=== PATIENT | female | born 1990 | race Caucasian/White ===

== ENCOUNTER 2022-04-15 23:54 | Outpatient (CLI) | payer OTHER ==
[~2022-04-15] VITALS: Ht 149.9 cm; Wt 52.7 kg
[2022-04-16 00:24] VITALS: BP 107/66
[2022-04-16] MEDS ORDERED: PREN-142 PO (00:45)
[2022-04-16] MEDS ORDERED: RT-ALBUINH INH (00:46)
--- NOTE | 2022-04-16 08:34 | Physician Query-Final Dx ---
MITCH,04/16/22 0834: Clinic Account Progress/Dx Physician Query: Please give diagnosis Please include # weeks gestation Date of Service Apr 15, 2022 at 23:54 BREANNA CARPIO MD 04/16/22 1157: Clinic Account Progress/Dx DIAGNOSIS: Diagnosis 21 weeks gestation with vaginal bleeding in [facility],JunApr 16, 2022 08:34 BREANNA CARPIO MD Apr 16, 2022 11:57
== END 2022-04-16 00:55 | disposition home or self-care (01) ==
LOC: LDRP 23:54 → WSo 23:54
PROVIDERS: ATTEND Obstetrics & Gynecology
DX: O46.92 Antepartum hemorrhage, unspecified, second trimester (principal); Z3A.21 21 weeks gestation of pregnancy
CPT/HCPCS: 99213

== ENCOUNTER → 2022-05-31 | Outpatient (CLI) | payer OTHER ==
[~2022-05-31] MED LIST: PREN-142 PO; RT-ALBUINH INH
--- NOTE | 2022-05-31 13:39 | Diagnostic Imaging Report ---
INDICATION: Low fundal height. TECHNIQUE: Multiple real-time grayscale images were obtained over the gravid uterus. COMPARISON: None FINDINGS: There is a single live fetus in a cephalic presentation. heart rate was recorded at 156 BPM. Placenta is anterior. Amniotic fluid index is 15.2 cm. Cervical length is 2.6 cm. Biophysical profile was performed with a normal score of 8/8. Biometrical measurements are as follows: Biparietal 7.36 cm, age 29 weeks 4 days. Head circumference 26.71 cm, age 29 weeks 1 days. Abdominal circumference 24.80 cm, age 29 weeks 1 days. Femur length 5.39 cm, age 28 weeks 4 days. Sonographic estimate age: 29 weeks 1 days. Sonographic estimated date of delivery: 08/15/2022. Estimated Weight: 1304 gm (+/- 190 gm). LMP percentile: 67%. heart rate: 156 beats per minute. number: 1 of 1. IMPRESSION: 1. Single live IUP of 29 weeks gestational age with estimated date of confinement sonographically of 08/15/2022. 2. Normal biophysical profile score of 8/8. Dictated by: Dictated on workstation # [id number]
== END ==
LOC: RAD 10:45
PROVIDERS: ATTEND Obstetrics & Gynecology
DX: O26.93 Pregnancy related conditions, unspecified, third trimester (principal); Z3A.29 29 weeks gestation of pregnancy
CPT/HCPCS: 76805; 76819

== ENCOUNTER 2022-07-31 22:37 | Emergency (ER) | payer OTHER ==
[~2022-07-31] VITALS: Ht 152.4 cm; Wt 55.3 kg
--- NOTE | 2022-07-31 23:11 | ED Lower Extremity ---
General Chief Complaint: Lower Extremity Stated Complaint: PAIN IN RIGHT LEG Nursing Triage Note: 37 WK PT AMB TO RM 6 WITH CC OF RIGHT CALF PAIN THAT STARTED AT 1999 THIS EVENING. PT RATES PAIN A 09/10. Source: patient, family Exam Limitations: no limitations History of Present Illness Date Seen by Provider: Jul 31, 2022 Time Seen by Provider: 22:58 Initial Comments 31-year-old female presents to the emergency department today for right leg pain. She is 37 weeks . She states symptoms present since this morning about 10 AM when she was sitting in a chair. She states she typically just takes it easy on Tuesdays and if she does not work and she is worn down from her . She denies any swelling. She has pain with a sharp stabbing in her right calf without radiation. No aggravating or alleviating factors. She has not tried anything to alleviate her symptoms. She denies any chest pain or shortness of breath. Allergies and Home Medications Allergies Coded Allergies: No Known Drug Allergies (Verified Allergy, Unknown, 08/08/09) Patient Home Medication List Home Medication List Reviewed: Yes Albuterol Sulfate (Ventolin Hfa) 1 Puff Puff, 2 PUFF INH Q4H, (Reported) Entered as Reported by: MEENU MARCOS on 04/16/2245 Vit No.124/Iron/FA ( Vitamin Tablet) 27 Mg Iron-800 Mcg Tablet, 1 EACH PO DAILY, (Reported) Entered as Reported by: MEENU MARCOS on 04/16/2244 Review of Systems Constitutional: no symptoms reported EENTM: no symptoms reported Respiratory: no symptoms reported Cardiovascular: no symptoms reported Gastrointestinal: no symptoms reported Genitourinary: no symptoms reported Musculoskeletal: other (Right calf pain) Skin: no symptoms reported Psychiatric/Neurological: No Symptoms Reported Past Glkodte-Vjenlm-Fqhgwl Hx Patient Social History Tobacco Use?: No Substance use?: No Alcohol Use?: No Past Medical History Surgery/Hospitalization HX: HEART MURMUR AT AGE 4 Reproductive Disorders: No Family Medical History Reviewed Nursing Family Hx No Pertinent Family Hx Physical Exam Vital Signs Vital Signs - First Documented 07/31/22 22:44 Pulse 74 B/P (MAP) 104/69 (81) Pulse Ox 100 O2 Delivery Room Air Capillary Refill : Height, Weight, BMI Height: '" Weight: lbs. oz. kg; 23.00 BMI Method: General Appearance: WD/WN, no apparent distress HEENT: normal ENT inspection, pharynx normal Neck: non-tender, supple Cardiovascular: regular rate, rhythm, no edema, no murmur Respiratory: chest non-tender, lungs clear, normal breath sounds, no respiratory distress, no accessory muscle use, respiratory distress Gastrointestinal: normal bowel sounds, non tender, soft, no organomegaly, other () Legs: right leg other (Tenderness palpation right calf. No swelling. Good distal pulses bilaterally.) Knees: bilateral knee non-tender, bilateral knee normal inspection, bilateral knee normal range of motion Ankles: bilateral ankle non-tender, bilateral ankle normal inspection, bilateral ankle normal range of motion Neurologic/Psychiatric: alert, normal mood/affect, oriented x 3 Skin: normal color, warm/dry Progress/Results/Core Measures Results/Orders My Orders Orders - HOSEAIVETTE FISCHER DO Enoxaparin Injection (Lovenox Injection) (07/31/22 23:15) Medications Given in ED Current Medications Medications Dose Ordered Sig/Beba Route Start Time Stop Time Status Last Admin Dose Admin Enoxaparin Sodium 50 mg ONCE ONCE SC 07/31/22 23:15 07/31/22 23:16 DC 07/31/22 23:13 50 MG Vital Signs/I&O 07/31/22 22:44 Pulse 74 B/P (MAP) 104/69 (81) Pulse Ox 100 O2 Delivery Room Air Blood Pressure Mean: 81 Departure Communication (Admissions) Patient is hemodynamically stable. She has mild tenderness about her right calf. Neurovascular motor and sensory intact. There is no swelling in the area. No trauma to the area some indication for imaging. We do not have ultrasound available after hours. With that we will go ahead and give her 1 mg/kg of Lovenox tonight. I have scheduled for an outpatient ultrasound to be completed tomorrow. These results will go to Dr. MADRIGAL for further treatment recommendations. Impression Primary Impression: Right calf pain Additional Impression: Qualified Codes: Z3A.37 - 37 weeks gestation of Disposition: HOME, SELF-CARE Condition: Stable Departure-Patient Inst. Referrals: NO,LOCAL PHYSICIAN (PCP/Family) Primary Care Physician Patient Instructions: Deep Vein Thrombosis (DVT) ED Add. Discharge Instructions: Given your , you are at increased risk for blood clots in your veins. WIth that, i have given you a dose of a blood thinning medication, lovenox. I will go ahead and order an ultrasound for you to complete tomorrow. If this is negative, there is no need for further treatment. If positive, you will need to contact Dr Sanchez's office to get a prescription for treatment going forward. I will forward your ultrasound results to their office. Return to the ER immediately if you develop chest pain or significant shortness of breath. Follow up with Dr Sanchez tomorrow. All discharge instructions reviewed with patient and/or family. Voiced underst anding. IVETTE JC DO Jul 31, 2022 23:11
[2022-07-31] MEDS ORDERED: ENOXAPARIN 60 MG/0.6 ML (LOVENOX) SYR SC ONE (23:15)
[2022-07-31 23:40] VITALS: BP 103/63
== END 2022-07-31 23:40 | disposition home or self-care (01) ==
LOC: EDUNIT# 22:37 → ER 22:40
DX: O99.891 Other specified diseases and conditions complicating pregnancy (principal); M79.661 Pain in right lower leg; Z3A.37 37 weeks gestation of pregnancy; Z28.310 Unvaccinated for COVID-19
CPT/HCPCS: 99284

== ENCOUNTER → 2022-08-01 | Outpatient (CLI) | payer OTHER ==
--- NOTE | 2022-08-01 12:40 | Diagnostic Imaging Report ---
PROCEDURE: US right lower extremity venous. TECHNIQUE: Multiple real-time grayscale images were obtained over the right lower extremity in various projections. Additional spectral analysis and color Doppler duplex images were also obtained. INDICATION: Right leg pain and swelling. FINDINGS: There is no evidence of right lower extremity DVT. Right lower extremity deep venous system shows normal compressibility with normal response to augmentation and Valsalva. No fluid collection or mass is detected. IMPRESSION: No evidence of right lower extremity DVT. Dictated by: Dictated on workstation # [id number]
== END ==
LOC: RAD 11:58
PROVIDERS: ATTEND Emergency Medicine
DX: O26.899 Other specified pregnancy related conditions, unspecified trimester (principal); M79.604 Pain in right leg; M79.89 Other specified soft tissue disorders; Z3A.00 Weeks of gestation of pregnancy not specified

== ENCOUNTER 2022-08-16 07:35 | Inpatient (IN) | payer OTHER ==
[2022-08-16] VITALS (45 sets, daily range): BP systolic 93–147; BP diastolic 50–96
[2022-08-16] MEDS ORDERED: MINERAL OIL 30 ML UDC TOP PRN (08:30)
[2022-08-16 08:33] LABS: BASOPHILS % (AUTO) 0 % (0-10); EOSINOPHILS # (AUTO) 0.1 10^3/uL (0.0-0.3); EOSINOPHILS % (AUTO) 1 % (0-10); HEMATOCRIT 28 % (35-52); HEMOGLOBIN 8.8 g/dL (11.5-16.0); LYMPHOCYTES % (AUTO) 21 % (12-44); MEAN CORPUSCULAR HEMOGLOBIN 26 pg (25-34); MEAN CORPUSCULAR HGB CONC 32 g/dL (32-36); MEAN CORPUSCULAR VOLUME 80 fL (80-99); MONOCYTES # (AUTO) 0.7 10^3/uL (0.0-1.0); MONOCYTES % (AUTO) 7 % (0-12); NEUTROPHILS # (AUTO) 6.7 10^3/uL (1.8-7.8); NEUTROPHILS % (AUTO) 70 % (42-75); PLATELET COUNT 270 10^3/uL (130-400); WHITE BLOOD COUNT 9.5 10^3/uL (4.3-11.0)
[2022-08-16] MEDS ORDERED: fentaNYL 2 mcg/ml BUPIVA 0.125 100 ML ONE (08:53)
--- NOTE | 2022-08-16 08:53 | History & Physical-OB ---
OB - Chief Complaint & HPI Date/Time Date of Admission: Date of Admission: Aug 16, 2022 at 07:37 Date seen by a Provider: Aug 16, 2022 Time Seen by a Provider: 08:00 Chief Complaint/History OB-Reason for Admission/Chief: Onset of Labor Hx : 2 Hx Para: 1 Expected Date of Delivery: Aug 22, 2022 Gestational Age in Weeks: 39 Gestational Age in Days: 1 Admission Nurse Assessment Rev: Yes History of Labs MBT O POS PNAS NEG VDRL NR HBSAG NR HIV NR RUBELLA IMMUNE TSH NORMAL HCV NR MSAFP/MULTIPLE MARKERS NORMAL 1 HR GLUCOLA 95 GBS NEG Allergies and Home Medications Allergies Coded Allergies: No Known Drug Allergies (Verified , 08/08/09) Patient Home Medication List Home Medication List Reviewed: Yes Albuterol Sulfate (Ventolin Hfa) 1 Puff Puff, 2 PUFF INH Q4H, (Reported) Entered as Reported by: MEENU MARCOS on 04/16/2245 Vit No.124/Iron/FA ( Vitamin Tablet) 27 Mg Iron-800 Mcg Tablet, 1 EACH PO DAILY, (Reported) Entered as Reported by: MEENU MARCOS on 04/16/2244 OB - History Hx of Present Care: Yes Obstetrical Complications: None Medical Complications: Other (ASTHMA) Information Induced Hypertension: No Maternal Gestational Diabetes: No Delivery History Hx Blood Disorders: No Patient Past Medical History ASTHMA: CONTROLLED HX CARDIAC SURGERY AGE 4 FOR HEART MURMUR, NO ISSUES, NO EXERCISE INTOLERANCE. Social History/Family History Alcohol Use: Denies Use Recreational Drug Use: No 2nd Hand Smoke Exposure: No OB - Admission Exam Physical Exam HEENT: Moist Membranes Heart: Rhythm Normal Lungs: Clear Abdomen: Gravid Extremities: Normal Reflexes: Normal Cervical Dilatation: 6cm Effacement: Other (80) Station: -3 Membranes: Intact Heart Rate: 120's Accelerations: Accelerations Present Decelerations: Variable Decelerations Short Term Variability: Present Longterm Variability: Average (6-25) Contractions on Admission: < 5 Minutes Apart Intensity: Firm Labs Laboratory Tests Test 08/16/22 08:19 Range/Units White Blood Count 9.5 4.3-11.0 10^3/uL Red Blood Count 3.43 L 3.80-5.11 10^6/uL Hemoglobin 8.8 L 11.5-16.0 g/dL Hematocrit 28 L 35-52 % Mean Corpuscular Volume 80 80-99 fL Mean Corpuscular Hemoglobin 26 25-34 pg Mean Corpuscular Hemoglobin Concent 32 32-36 g/dL Red Cell Distribution Width 12.5 10.0-14.5 % Platelet Count 270 130-400 10^3/uL Mean Platelet Volume 10.0 9.0-12.2 fL Immature Granulocyte % (Auto) 1 % Neutrophils (%) (Auto) 70 42-75 % Lymphocytes (%) (Auto) 21 12-44 % Monocytes (%) (Auto) 7 0-12 % Eosinophils (%) (Auto) 1 0-10 % Basophils (%) (Auto) 0 0-10 % Neutrophils # (Auto) 6.7 1.8-7.8 10^3/uL Lymphocytes # (Auto) 2.0 1.0-4.0 10^3/uL Monocytes # (Auto) 0.7 0.0-1.0 10^3/uL Eosinophils # (Auto) 0.1 0.0-0.3 10^3/uL Basophils # (Auto) 0.0 0.0-0.1 10^3/uL Immature Granulocyte # (Auto) 0.1 0.0-0.1 10^3/uL OB - Assessment/Plan/Diagnosis Assessment Assessment: active labor Admission Dx # 39 1/7 WEEKS # ACTIVE LABOR Admission Status: Inpatient Order (span 2 midnights) Reason for Inpatient Admission: 39 1/7 WEEKS ACTIVE LABOR Plan Plan: Expectant Management, Other (EPIDURAL AT PATIENT REQUEST. ASTHMA: AVOID HEMABATE, HAVE EXTRA PITOCIN AND METHERGINE AND CYTOTEC IF POSTPARTU HEMORRHAGE) BENJI WARREN DO Aug 16, 2022 08:53
[2022-08-16] MEDS: D5 LR IV SOLUTION 1,000 ML IV SCH (09:06)
[2022-08-16] MEDS ORDERED: NALOXONE 0.4 MG/ML 1 ML (NARCAN) VIAL IV PRN ×2 (09:30)
[2022-08-16] MEDS ORDERED: ONDANSETRON 4 MG/2 ML (SDV) Z0FRAN IV PRN (09:30)
[2022-08-16] MEDS ORDERED: diphenhydrAMINE 50 MG/ML INJ (BENADRYL) IV PRN (09:30)
[2022-08-16] MEDS ORDERED: fentaNYL 2 mcg/ml BUPIVA 0.125 100 ML EPI SCH (09:30)
[2022-08-16] MEDS ORDERED: LACTATED RINGERS 1,000 ML IV SCH (09:30)
[2022-08-16] MEDS ORDERED: METOCLOPRAMIDE INJ 10 MG/2 ML (REGLAN) IV PRN (09:30)
--- NOTE | 2022-08-16 10:29 | Labor Progress Note ---
Labor Progress Note Labor Progress Note Date Seen by Provider: Aug 16, 2022 Time Seen by Provider: 10:18 Subjective: Pt denies complaints. Objective: (Can we insert 24 hour vitals here?) Cervical exam: /-2/VTX/BOWI....AROM clear @ 1018 hours. Patient with functional epidural. Category I FHR tracing with spontaneous contractions q 3 minutes, FHR baseline 125, moderate variability, +accels, no decels. Assessment/Plan: Mary Mathews is a (31 /Para 2 / 1,Gestational Age (wks)39 here for labor, now AROM clear @ 7 cm dilation. with functional epidural. Anesthesia: Epidural Anticipate vaginal delivery. Vitals - Labs Vital Signs - I&O Vital Signs Date Time Temp Pulse Resp B/P (MAP) Pulse Ox O2 Delivery O2 Flow Rate FiO2 08/16/22 07:45 37.1 70 18 100 Room Air 08/16/22 07:43 37.0 71 18 114/62 (79) 100 Room Air Labs Laboratory Tests 08/16/22 08:19: White Blood Count 9.5, Red Blood Count 3.43L, Hemoglobin 8.8L, Hematocrit 28L, Mean Corpuscular Volume 80, Mean Corpuscular Hemoglobin 26, Mean Corpuscular Hemoglobin Concent 32, Red Cell Distribution Width 12.5, Platelet Count 270, Mean Platelet Volume 10.0, Immature Granulocyte % (Auto) 1, Neutrophils (%) (Auto) 70, Lymphocytes (%) (Auto) 21, Monocytes (%) (Auto) 7, Eosinophils (%) (Auto) 1, Basophils (%) (Auto) 0, Neutrophils # (Auto) 6.7, Lymphocytes # (Auto) 2.0, Monocytes # (Auto) 0.7, Eosinophils # (Auto) 0.1, Basophils # (Auto) 0.0, Immature Granulocyte # (Auto) 0.1 08/16/22 10:05: BENJI WARERN DO Aug 16, 2022 10:29
[2022-08-16 10:37] LABS: AMPHETAMINE SCREEN, URINE NEGATIVE (NEGATIVE); BARBITURATE SCREEN URINE NEGATIVE (NEGATIVE); BENZODIAZEPINES SCREEN URINE NEGATIVE (NEGATIVE); CANNABINOID SCREEN, URINE NEGATIVE (NEGATIVE); COCAINE SCREEN URINE NEGATIVE (NEGATIVE); METHADONE STAT NEGATIVE (NEGATIVE); OPIATE SCREEN URINE NEGATIVE (NEGATIVE); OXYCODONE STAT NEGATIVE (NEGATIVE); PROPOXYPHENE STAT NEGATIVE (NEGATIVE); TRICYCLIC ANTIDEPRESSANTS SCRE NEGATIVE (NEGATIVE)
[2022-08-16] MEDS ORDERED: LIDOCAINE 1% INJ 10 ML VIAL ONE (14:11)
[2022-08-16] MEDS ORDERED: OXYTOCIN PRE-MIX DRIP 500 ML IV ONE ×2 (14:11→15:06)
[2022-08-16] MEDS: OXYTOCIN PRE-MIX DRIP 500 ML IV SCH ×2 (14:34→15:06)
--- NOTE | 2022-08-16 14:53 | OB Labor & Delivery Record ---
Vag Delivery Note Vag Delivery Note Date of Delivery: 08/16/22 Preoperative Diagnosis: Mary Mathews is a (31 /Para 2 / 1, Gestational Age (wks)39with [ ] Postoperative Diagnosis: Same Surgeon: BENJI WARREN Bank Runner: None Anesthesia: Epidural Delivery Type: Findings: Viable Female infant, apgars 9/9, weight pending Lacerations: None Intact placenta with 3 vessel cord. Loose nuchal cord x1, body cord around one leg and one arm Estimated Blood Loss: 200 ml Complications: None Condition: Stable Description of Procedure: Complete: 1419 Baby: 1433 Placenta 1436 (intact and spontaneous) Delayed cord clamp x 1 minute. Rapid IV Pitocin infusion started after cord clamp. Uterus massaged and firm after delivery. Cervix, vagina and perineum without lacerations. No active bleeding. Mother and baby doing well. Cord blood collected after delivery of baby. She was then set up for delivery. The infant's head was delivered atraumatically in the [] position. The shoulders and remainder of the 's body were then delivered without difficulty. Upon delivery, the was vigorous and placed on maternal chest and the mouth and nares were bulb suctioned. After a delay cord was doubly clamped and cut and the remained on maternal chest. An intact placenta with 3-vessel cord delivered via Lynn and there was found to be minimal bleeding.~ Vigorous fundal massage was performed and the fundus was found to be firm. IV oxytocin was given. Examination of the vagina and perineum revealed a [] laceration repaired in the usual fashion with 3-0 vicryl rapide suture. Following the repair, sponge, instrument and needle counts were correct. Mom and baby were both in stable condition in the labor suite. Vitals - Labs Vital Signs - I&O Vital Signs Date Time Temp Pulse Resp B/P (MAP) Pulse Ox O2 Delivery O2 Flow Rate FiO2 08/16/22 13:30 37.2 70 18 99/58 (72) Room Air 08/16/22 09:51 65 18 99/56 (70) 100 Room Air 08/16/22 09:48 60 18 100/56 (71) Room Air 08/16/22 09:45 72 18 98/57 (71) 100 Room Air 08/16/22 09:42 66 18 101/58 (72) Room Air 08/16/22 09:39 72 18 102/58 (73) 100 Room Air 08/16/22 09:36 68 18 99/54 (69) 100 Room Air 08/16/22 09:33 75 18 93/57 (69) Room Air 08/16/22 09:30 73 18 95/61 (72) 100 Room Air 08/16/22 09:28 75 18 98/62 (74) Room Air 08/16/22 09:25 70 18 94/56 (69) 100 Room Air 08/16/22 09:21 74 18 96/59 (71) 100 Room Air 08/16/22 09:18 95 18 97/60 (72) 92 Room Air 08/16/22 09:15 84 18 93/64 (74) 100 Room Air 08/16/22 07:45 37.1 70 18 100 Room Air 08/16/22 07:43 37.0 71 18 114/62 (79) 100 Room Air Labs Laboratory Tests 08/16/22 08:19: White Blood Count 9.5, Red Blood Count 3.43L, Hemoglobin 8.8L, Hematocrit 28L, Mean Corpuscular Volume 80, Mean Corpuscular Hemoglobin 26, Mean Corpuscular Hemoglobin Concent 32, Red Cell Distribution Width 12.5, Platelet Count 270, Mean Platelet Volume 10.0, Immature Granulocyte % (Auto) 1, Neutrophils (%) (Auto) 70, Lymphocytes (%) (Auto) 21, Monocytes (%) (Auto) 7, Eosinophils (%) (Auto) 1, Basophils (%) (Auto) 0, Neutrophils # (Auto) 6.7, Lymphocytes # (Auto) 2.0, Monocytes # (Auto) 0.7, Eosinophils # (Auto) 0.1, Basophils # (Auto) 0.0, Immature Granulocyte # (Auto) 0.1, Syphilis Serology Non-Reactive 08/16/22 10:05: Urine Opiates Screen NEGATIVE, Urine Oxycodone Screen NEGATIVE, Urine Methadone Screen NEGATIVE, Urine Propoxyphene Screen NEGATIVE, Urine Barbiturates Screen NEGATIVE, Ur Tricyclic Antidepressants Screen NEGATIVE, Urine Phencyclidine Screen NEGATIVE, Urine Amphetamines Screen NEGATIVE, Urine Methamphetamines Screen NEGATIVE, Urine Benzodiazepines Screen NEGATIVE, Urine Cocaine Screen NEGATIVE, Urine Cannabinoids Screen NEGATIVE BENJI WARREN DO Aug 16, 2022 14:53
[2022-08-16] MEDS ORDERED: BENZOCAINE/MENTHOL (DERMOPLAST) 56 ML CAN TP PRN (15:15)
[2022-08-16] MEDS ORDERED: WITCH HAZEL(TUCKS) 40 EA JAR TOP PRN (15:15)
[2022-08-17 00:05] VITALS: BP 105/61
[2022-08-17 04:43] VITALS: BP 112/69
[2022-08-17 06:06] LABS: BASOPHILS % (AUTO) 0 % (0-10); EOSINOPHILS # (AUTO) 0.1 10^3/uL (0.0-0.3); EOSINOPHILS % (AUTO) 1 % (0-10); HEMATOCRIT 23 % (35-52); HEMOGLOBIN 7.3 g/dL (11.5-16.0); LYMPHOCYTES # (AUTO) 1.9 10^3/uL (1.0-4.0); LYMPHOCYTES % (AUTO) 16 % (12-44); MEAN CORPUSCULAR HEMOGLOBIN 26 pg (25-34); MEAN CORPUSCULAR HGB CONC 32 g/dL (32-36); MEAN CORPUSCULAR VOLUME 81 fL (80-99); MEAN PLATELET VOLUME 9.3 fL (9.0-12.2); MONOCYTES # (AUTO) 0.7 10^3/uL (0.0-1.0); MONOCYTES % (AUTO) 6 % (0-12); NEUTROPHILS # (AUTO) 9.1 10^3/uL (1.8-7.8); NEUTROPHILS % (AUTO) 77 % (42-75); PLATELET COUNT 221 10^3/uL (130-400); WHITE BLOOD COUNT 11.9 10^3/uL (4.3-11.0)
[2022-08-17] MEDS: CATHETER FLUSH 10 ML SYR IV SCH ×4 (07:00→07:23)
[2022-08-17] MEDS ORDERED: PRENATAL VITAMIN 1 EA TAB PO SCH (07:00)
[2022-08-17] MEDS: D5 LR IV SOLUTION 1,000 ML IV SCH (07:23)
[2022-08-17] MEDS: DOCUSATE SODIUM 100 MG (COLACE) CAP PO SCH ×3 (07:24→21:50)
[2022-08-17] MEDS: IBUPROFEN 600 MG (MOTRIN) TAB PO SCH ×4 (07:33→21:50)
[2022-08-17] MEDS: ACETAMINOPHEN 500 MG TAB (TYLENOL) PO SCH ×5 (07:33→21:50)
[2022-08-17] MEDS ORDERED: FERROUS SULF 325 MG (IRON) TAB PO SCH (09:00)
[2022-08-17 10:00] VITALS: BP 96/64
--- NOTE | 2022-08-17 10:44 | Anesthesia-Regional Post-Op ---
Regional Patient Condition Mental Status: Alert, Oriented x3 Circulation: Same as Pre-Op Headache: Absent Sensation: Full Recovery Motor Block: Absent Post Op Complications Complications None Follow Up Care/Instructions Patient Instructions None needed. Anesthesia/Patient Condition Patient is doing well, no complaints, stable vital signs, no apparent adverse anesthesia problems. No complications reported per nursing. JORGE ALLISON CRNA Aug 17, 2022 10:44
[2022-08-17 12:55] VITALS: BP 93/52
[2022-08-17 15:50] VITALS: BP 105/62
--- NOTE | 2022-08-17 18:04 | Short Stay Summary ---
Discharge Summary Hospital Course Was the Problem List Reviewed?: Yes Final Diagnosis: Labor Hospital Course Date of Admission: Aug 16, 2022 at 07:37 Admission Diagnosis : Family Physician/Provider: No,Local Physician Date of Discharge: 08/17/22 Discharge Diagnosis: [ ] Hospital Course: [ ] Labs and Pending Lab Test: Laboratory Tests 08/17/22 06:00: White Blood Count 11.9H, Red Blood Count 2.79L, Hemoglobin 7.3L, Hematocrit 23L, Mean Corpuscular Volume 81, Mean Corpuscular Hemoglobin 26, Mean Corpuscular Hemoglobin Concent 32, Red Cell Distribution Width 12.5, Platelet Count 221, Mean Platelet Volume 9.3, Immature Granulocyte % (Auto) 1, Neutrophils (%) (Auto) 77H, Lymphocytes (%) (Auto) 16, Monocytes (%) (Auto) 6, Eosinophils (%) (Auto) 1, Basophils (%) (Auto) 0, Neutrophils # (Auto) 9.1H, Lymphocytes # (Auto) 1.9, Monocytes # (Auto) 0.7, Eosinophils # (Auto) 0.1, Basophils # (Auto) 0.0, Immature Granulocyte # (Auto) 0.1 Home Meds Active Reported Ventolin Hfa (Albuterol Sulfate) 1 Puff Puff 2 Puff INH Q4H 1 PUFF = 90 MCG Vitamin Tablet ( Vit No.124/Iron/FA) 27 Mg Iron-800 Mcg Tablet 1 Each PO DAILY Assessment/Pt Instructions 6 week follow up with Dr. Frias Discharge Instructions Discharge Diet: No Restrictions Activity as Tolerated: Yes Discharge Physical Examination General Appearance: Oriented X3 HEENT: Mucous Memb Moist/[place] Respiratory: Normal Air Movement Cardiovascular: Regular Rate Abdominal: No Tenderness Extremities: No Tenderness/Swelling Skin: No Rashes Neuro: Normal Gait Psych/Mental Status: Mental Status NL Allergies: Coded Allergies: No Known Drug Allergies (Verified , 08/08/09) Discharge Summary Date of Admission Aug 16, 2022 at 07:37 Date of Discharge BENJI WARREN DO Aug 17, 2022 18:04
== END 2022-08-17 21:50 | disposition home or self-care (01) | DRG 807 ==
LOC: WSo 07:35 → LDRP 07:35 → WSo 07:36 → LDRP 07:37
PROVIDERS: ADMIT Obstetrics & Gynecology; ATTEND Obstetrics & Gynecology
PROC: 10E0XZZ Delivery of Products of Conception, External Approach (ICD-10-PCS; principal; 2022-08-16)
DX: O99.52 Diseases of the respiratory system complicating childbirth (principal); Z37.0 Single live birth; J45.909 Unspecified asthma, uncomplicated; Z3A.39 39 weeks gestation of pregnancy; O69.81X0 Labor and delivery complicated by cord around neck, without compression, not applicable or unspecified; O69.89X0 Labor and delivery complicated by other cord complications, not applicable or unspecified; Z79.899 Other long term (current) drug therapy; Z28.310 Unvaccinated for COVID-19
CPT/HCPCS: 36415; 80306; 85025; 86780; 86850; 86900; 86901